=== PATIENT | female | born 1970 | race Caucasian/White ===

== ENCOUNTER → 2016-08-22 | Outpatient (CLI) | payer BC ==
[~2016-08-22] MED LIST: CLAR-19 PO; ESTR0.9T PO
--- NOTE | 2016-08-22 18:00 | Diagnostic Imaging Report ---
Bilateral screening mammogram The current study was also evaluated with a Computer Aided Detection (CAD) system. INDICATION: Screening. No current complaints stated on the questionnaire. COMPARISON: 12/18/13. FINDINGS: The breasts are composed of scattered fibroglandular densities. There are scattered benign-appearing calcifications. Allowing for technique and positional differences, no suspicious change is seen. IMPRESSION: No significant change. ACR BI-RADS Category 2: Benign findings. Result letter will be mailed to the patient. Note: At least 10% of breast cancer is not imaged by mammography. Dictated by: Dictated on workstation # [id number]
== END ==
LOC: RAD 07:34
PROVIDERS: ATTEND Nurse Practitioner
DX: Z12.31 Encounter for screening mammogram for malignant neoplasm of breast (principal)
CPT/HCPCS: 77067

== ENCOUNTER 2017-12-17 12:26 | Emergency (ER) | payer BC ==
[~2017-12-17] VITALS: Ht 167.6 cm; Wt 88.5 kg
--- OUTSIDE RECORDS SUMMARY | 2017-12-17 12:40 | XMS REPORT | Continuity of Care Document ---
Author Author [facility] Organization [facility] Address Unknown Phone Unavailable Allergies Active Description Code Type Severity Reaction Onset Reported/Identified Relationship to Patient Clinical Status Yes levofloxacin [id number] Drug Allergy Unknown N/A 05/21/2011 Medications There is no data. Problems Date Dx Coded Attending Type Code Diagnosis Diagnosed By 05/24/2011 Ot 009.1 ENTERITIS OF INFECT ORIG 05/24/2011 Ot 285.9 ANEMIA NOS 05/24/2011 Ot 305.1 TOBACCO USE DISORDER 05/24/2011 Ot 490 BRONCHITIS NOS 05/24/2011 Ot 530.11 REFLUX ESOPHAGITIS 05/24/2011 Ot 530.81 ESOPHAGEAL REFLUX 05/24/2011 Ot 535.40 OTH SPECIFIED GASTRITIS,W/O MENTION OF H 05/24/2011 Ot 578.1 BLOOD IN STOOL 05/24/2011 Ot V12.61 PERSONAL HISTORY, PNEUMONIA (RECURRENT) 01/13/2016 Ot 793.82 INCONCLUSIVE MAMMOGRAM 01/13/2016 Ot V76.12 OTH SCREEN MAMMO-MALIGN NEOPLASM OF DAVID 01/13/2016 Ot 793.80 UNSPEC ABNORMAL MAMMOGRAM 01/13/2016 BAKARI COSME Ot V76.12 OTH SCREEN MAMMO-MALIGN NEOPLASM OF DAVID 01/13/2016 BAKARI COSME Ot V76.12 OTH SCREEN MAMMO-MALIGN NEOPLASM OF DAVID 08/28/2016 BAKARI COSME Ot Z12.31 ENCNTR SCREEN MAMMOGRAM FOR MALIGNANT NE 2016 BAKARI COSME Ot Z12.31 ENCNTR SCREEN MAMMOGRAM FOR MALIGNANT NE Procedures Code Description Performed By Performed On 45.16 05/23/2011 45.25 05/23/2011 Results There is no data. Encounters ACCT No. Visit Date/Time Discharge Status Pt. Type Provider Facility Loc./Unit Complaint [id number] 08/22/2016 07:34:00 08/22/2016 23:59:59 CLS Outpatient BAKARI COSME [facility] RAD Z12.31 SCREENING [id number] 12/18/2013 08:59:00 12/18/2013 23:59:59 CLS Outpatient BAKARI COSME [facility] RAD SCREENING [id number] 08/29/2012 08:23:00 08/29/2012 23:59:59 CLS Outpatient BAKARI COSME [facility] RAD SCREENING [id number] 05/21/2011 10:46:00 Document Registration [id number] 02/16/2011 08:34:00 Document Registration [id number] 01/27/2011 08:43:00 Document Registration
[2017-12-17 15:21] LABS: BASOPHILS % (AUTO) 0 % (0-10); EOSINOPHILS # (AUTO) 0.1 10^3/uL (0.0-0.3); EOSINOPHILS % (AUTO) 2 % (0-10); HEMATOCRIT 37 % (35-52); HEMOGLOBIN 12.8 G/DL (11.5-16.0); LYMPHOCYTES # (AUTO) 0.9 X 10^3 (1.0-4.0); LYMPHOCYTES % (AUTO) 13 % (12-44); MEAN CORPUSCULAR HEMOGLOBIN 33 PG (25-34); MEAN CORPUSCULAR HGB CONC 35 G/DL (32-36); MEAN CORPUSCULAR VOLUME 95 FL (80-99); MONOCYTES # (AUTO) 0.6 X 10^3 (0.0-1.0); MONOCYTES % (AUTO) 8 % (0-12); NEUTROPHILS # (AUTO) 5.4 X 10^3 (1.8-7.8); NEUTROPHILS % (AUTO) 77 % (42-75); PLATELET COUNT 233 10^3/uL (130-400); RED CELL DISTRIBUTION WIDTH 12.7 % (10.0-14.5)
[2017-12-17 15:33] LABS: PROTHROMBIN TIME PATIENT 12.8 SEC (12.2-14.7)
[2017-12-17 15:42] LABS: ALANINE AMINOTRANSFERASE 18 U/L (0-55); ALBUMIN 4.7 GM/DL (3.2-4.5); ALKALINE PHOSPHATASE 69 U/L (40-136); BILIRUBIN,TOTAL 0.5 MG/DL (0.1-1.0); BUN/CREATININE RATIO 14; CALCIUM 9.5 MG/DL (8.5-10.1); CARBON DIOXIDE 21 MMOL/L (21-32); CHLORIDE 107 MMOL/L (98-107); CREATININE SERUM 0.73 MG/DL (0.60-1.30); GFR ESTIMATED > 60; GLUCOSE 88 MG/DL (70-105); POTASSIUM 3.9 MMOL/L (3.6-5.0); SODIUM 139 MMOL/L (135-145); TOTAL PROTEIN 7.7 GM/DL (6.4-8.2)
--- NOTE | 2017-12-17 16:22 | Diagnostic Imaging Report ---
EXAMINATION: Right knee at 4:13 p.m. INDICATION: Injury, knee pain. Three views were obtained. There are no prior studies available for comparison. FINDINGS: There is no fracture, dislocation, or acute bony abnormality evident. The knee joint is fairly well maintained. The soft tissues are unremarkable. IMPRESSION: 1. There is no evidence for an acute bony abnormality. 2. If there is clinical concern regarding internal derangement, then MRI would be recommended for additional evaluation. Dictated by: Dictated on workstation # [id number]
--- NOTE | 2017-12-17 17:39 | ED Lower Extremity ---
General Chief Complaint: Lower Extremity Stated Complaint: R LEG INJ/INFECTION Nursing Triage Note: PT PRESENTS TO ER WITH COMPLAINT OF RIGHT LEG PAIN. STATES SHE SAW JUANY ON MONDAY FOR AN INJURY. STARTED ON KEFLEX. PT STATES SHE WAS INSTRUCTED BY JUANY TO COME TO THE ER IF HER LEG DID NOT IMPROVE. Nursing Sepsis Screen: No Definite Risk Source: patient Exam Limitations: no limitations History of Present Illness Date Seen by Provider: Dec 17, 2017 Time Seen by Provider: 14:26 Initial Comments Patient is a 47 year old female who presents to the ER with complaints of right leg/knee pain. She reports that on December 02 she fell off of a boat hitting her right knee on the side as she went over the edge causing significant bruising to the right leg and an abrasion to the medial side of the right knee. She reports that one week ago the area of the abrasion became reddened and hot to the touch, at this time she went to see Dr. Dixon at the [facility] and she did an X-Ray and put her on keflex for infection. She is still currently on keflex but does not think she is getting better and was instructed to come to the ER if not improving over the weekend. Onset: last week Pain/Injury Location: right leg, right knee Method of Injury: fell Allergies and Home Medications Allergies Coded Allergies: Levofloxacin (Unverified Allergy, 05/21/11) Home Medications Clindamycin HCl 300 Mg Capsule, 300 MG PO Q6H, (Reported) Estradiol 1 Mg Tablet, 1 MG PO HS, (Reported) Penicillin V Potassium 500 Mg Tablet, 500 MG PO Q6H, (Reported) Patient Home Medication List Home Medication List Reviewed: Yes Review of Systems Constitutional: see HPI; No chills, No fever Musculoskeletal: see HPI, joint pain (right knee pain ) Skin: see HPI, other (brusing to right leg) Past Gaudxwi-Fhxdmc-Xyztmf Hx Past Med/Social Hx: Reviewed Nursing Past Med/Soc Hx Patient Social History Alcohol Use: Denies Use Recreational Drug Use: No Recent Foreign Travel: No Contact w/Someone Who Travel: No Recent Infectious Disease Expo: No Recent Hopitalizations: Yes Immunizations Up To Date Tetanus Booster (TDap): Unknown PED Vaccines UTD: Yes Past Medical History Surgeries: Yes (hysterectomy, tonsillectomy) Hysterectomy, Orthopedic, Tonsillectomy Respiratory: No Cardiac: No Neurological: No Reproductive Disorders: Yes Gastrointestinal: No Musculoskeletal: No Endocrine: No Psychosocial: No Integumentary: No Blood Disorders: No Family Medical History Reviewed Nursing Family Hx Physical Exam Vital Signs Vital Signs - First Documented 12/17/17 14:26 Temp 99.2 Pulse 89 Resp 18 B/P (MAP) 130/89 (103) Pulse Ox 100 O2 Delivery Room Air Capillary Refill : Less Than 3 Seconds Height, Weight, BMI Height: 5'6.00" Weight: 195lbs. oz. 88.680083im; BMI Method:Stated General Appearance: WD/WN, no apparent distress Neck: non-tender, full range of motion, supple, normal inspection Cardiovascular: normal peripheral pulses, regular rate, rhythm, no edema, no gallop, no JVD, no murmur Respiratory: chest non-tender, lungs clear, normal breath sounds, no respiratory distress, no accessory muscle use Hips: bilateral hip non-tender, bilateral hip normal inspection Legs: right leg abrasions (to the right knee medial side.), right leg ecchymosis (extensive ecchymosis to the right leg extending from the right knee to the right ankle. multiple stages of healing of the ecchymosis colors of yellowed to deep purple) Neurologic/Tendon: normal sensation, normal motor functions, normal tendon functions, responds to pain, other (normal capillary refill) Neurologic/Psychiatric: alert, normal mood/affect, oriented x 3 Skin: warm/dry, ecchymosis (as noted above) Progress/Results/Core Measures Results/Orders Lab Results Laboratory Tests Test 12/17/17 15:03 Range/Units White Blood Count 7.0 4.3-11.0 10^3/uL Red Blood Count 3.90 L 4.35-5.85 10^6/uL Hemoglobin 12.8 11.5-16.0 G/DL Hematocrit 37 35-52 % Mean Corpuscular Volume 95 80-99 FL Mean Corpuscular Hemoglobin 33 25-34 PG Mean Corpuscular Hemoglobin Concent 35 32-36 G/DL Red Cell Distribution Width 12.7 10.0-14.5 % Platelet Count 233 130-400 10^3/uL Mean Platelet Volume 10.0 7.4-10.4 FL Neutrophils (%) (Auto) 77 H 42-75 % Lymphocytes (%) (Auto) 13 12-44 % Monocytes (%) (Auto) 8 0-12 % Eosinophils (%) (Auto) 2 0-10 % Basophils (%) (Auto) 0 0-10 % Neutrophils # (Auto) 5.4 1.8-7.8 X 10^3 Lymphocytes # (Auto) 0.9 L 1.0-4.0 X 10^3 Monocytes # (Auto) 0.6 0.0-1.0 X 10^3 Eosinophils # (Auto) 0.1 0.0-0.3 10^3/uL Basophils # (Auto) 0.0 0.0-0.1 10^3/uL Prothrombin Time 12.8 12.2-14.7 SEC INR Comment 1.0 0.8-1.4 Activated Partial Thromboplast Time 31 24-35 SEC Sodium Level 139 135-145 MMOL/L Potassium Level 3.9 3.6-5.0 MMOL/L Chloride Level 107 98-107 MMOL/L Carbon Dioxide Level 21 21-32 MMOL/L Anion Gap 11 5-14 MMOL/L Blood Urea Nitrogen 10 7-18 MG/DL Creatinine 0.73 0.60-1.30 MG/DL Estimat Glomerular Filtration Rate > 60 BUN/Creatinine Ratio 14 Glucose Level 88 70-105 MG/DL Lactic Acid Level 0.90 0.50-2.00 MMOL/L Calcium Level 9.5 8.5-10.1 MG/DL Corrected Calcium 8.5-10.1 MG/DL Total Bilirubin 0.5 0.1-1.0 MG/DL Aspartate Amino Transf (AST/SGOT) 22 5-34 U/L Alanine Aminotransferase (ALT/SGPT) 18 0-55 U/L Alkaline Phosphatase 69 40-136 U/L C-Reactive Protein High Sensitivity 1.35 H 0.00-0.50 MG/DL Total Protein 7.7 6.4-8.2 GM/DL Albumin 4.7 H 3.2-4.5 GM/DL Micro Results Microbiology 12/17/17 Blood Culture - Preliminary, Resulted Gram Positive Isrrael See Comments My Orders Orders - RAJ SALCIDO Cbc With Automated Diff (12/17/17 14:34) Comprehensive Metabolic Panel (12/17/17 14:34) Blood Culture (12/17/17 14:34) Protime With Inr (12/17/17 14:34) Partial Thromboplastin Time (12/17/17 14:34) Saline Lock/Iv-Start (12/17/17 14:34) Vital Signs Adult Sepsis Patie Q15M (12/17/17 14:34) Lactic Acid Analyzer (12/17/17 14:34) Hs C Reactive Protein (12/17/17 14:36) Knee, Right, 3 Views (12/17/17 14:55) Us Venous Lower Ext Rt (12/17/17 14:55) Vital Signs/I&O 12/17/17 12/17/17 14:26 18:00 Temp 99.2 99.2 Pulse 89 89 Resp 18 18 B/P (MAP) 130/89 (103) 130/89 (103) Pulse Ox 100 100 O2 Delivery Room Air Blood Pressure Mean: 103 Progress Progress Note : Time: 17:00 Progress Note I have seen and evaluated the patient. I have informed her of US findings of no evidence of fluid collection to suspect an abscess or DVT and no fracture seen on X-RAY. I have informed her of laboratory findings and that the cultures would be reported out at a later date and Dr. Dixon would receive these results should her antibiotic need to be changed. I did review the case with Dr. Dixon at this time and she agrees with plans to discharge home given normal lab findings and normal imaging studies. The patient agrees with plan of care, return precautions were given. Diagnostic Imaging Diagonstic Imaging: Xray, Ultrasound Plain Films/CT/US/NM/MRI: leg, knee Comments NAME: MIMI CARSON [facility] REC#: [id number] PHYSICIAN: RAJ SALCIDO CC: ADRIANA SALCIDO MICHAEL S DO Page 2 of 2 RADIOLOGY REPORT [facility] [place], [place] CC: ADRIANA SALCIDO MICHAEL S DO Page 1 of 1 RADIOLOGY REPORT NAME: MIMI CARSON [facility] REC#: [id number] PT STATUS: DEP ER : 1970 PHYSICIAN: RAJ SALCIDO ADMIT DATE: 12/17/17/ER Signed Date of Exam: 09/16/18 US VENOUS LOWER EXT RT PROCEDURE: US right lower extremity venous. TECHNIQUE: Multiple real-time grayscale images were obtained over the right lower extremity in various projections. Additional duplex Doppler and color Doppler images were also obtained. INDICATION: Right lower extremity pain and swelling. Recent injury. COMPARISON: None available. FINDINGS: The visualized deep venous structures of the right lower extremity and left common femoral vein demonstrate normal compression, flow, and augmentation. There is an ill-defined area of hypoechogenicity in the area of interest in the anteromedial right lower leg. There is no discrete/drainable focal collection. IMPRESSION: 1. No evidence of DVT. 2. Ill-defined hypoechogenicity in the region of interest in the anteromedial lower leg. Findings are felt to represent focal edema, or possibly hematoma if there is been trauma to this area. No discrete/drainable collection is identified. Dictated by: Dictated on workstation # [id number] Dict: 12/17/17 1614 Trans: 12/17/171743 Interpreted by: USMAN WALTERS DO Electronically signed by: USMAN WALTERS DO 12/17/171743 NAME: MIMI CARSON [facility] REC#: [id number] PHYSICIAN: RAJ SALCIDO CC: ADRIANA SALCIDO PAUL J MD Page 1 of 1 RADIOLOGY REPORT V[facility] [place] CC: ADRIANA SALCIDO PAUL J MD Page 1 of 1 RADIOLOGY REPORT NAME: MIMI [facility]SON [facility] REC#: [id number] PT STATUS: REG ER : 1970 PHYSICIAN: RAJ SALCIDO ADMIT DATE: 12/17/17/ER Signed Date of Exam: 12/17/17 KNEE, RIGHT, 3 VIEWS EXAMINATION: Right knee at 4:13 p.m. INDICATION: Injury, knee pain. Three views were obtained. There are no prior studies available for comparison. FINDINGS: There is no fracture, dislocation, or acute bony abnormality evident. The knee joint is fairly well maintained. The soft tissues are unremarkable. IMPRESSION: 1. There is no evidence for an acute bony abnormality. 2. If there is clinical concern regarding internal derangement, then MRI would be recommended for additional evaluation. Dictated by: Dictated on workstation # [id number] Dict: 12/17/17 1616 Trans: 12/17/17 1648 Interpreted by: VITALIY LOPEZ MD Electronically signed by: VITALIY LOPEZ MD 12/17/17 1648 Departure Impression Primary Impression: Hematoma Additional Impression: Cellulitis Disposition: 01 HOME, SELF-CARE Condition: Stable/Unchanged Departure-Patient Inst. Decision time for Depature: 17:35 Referrals: MI EVERETT MD (PCP/Family) Primary Care Physician Patient Instructions: Contusion (DC), HEMATOMA Add. Discharge Instructions: Continue the Keflex as previously prescribed. Follow up with Dr. Dixon within 1 week for recheck. You may take ibuprofen and Tylenol as directed by the bottle. Alternate ice and heat to the sore areas. Return back to the emergency room for any worsening symptoms or concerns as needed. All discharge instructions reviewed with patient and/or family. Voiced understanding. RAJ SALCIDO Dec 17, 2017 17:39
[2017-12-17 18:00] VITALS: BP 130/89
--- NOTE | 2017-12-18 13:06 | Diagnostic Imaging Report ---
PROCEDURE: US right lower extremity venous. TECHNIQUE: Multiple real-time grayscale images were obtained over the right lower extremity in various projections. Additional duplex Doppler and color Doppler images were also obtained. INDICATION: Right lower extremity pain and swelling. Recent injury. COMPARISON: None available. FINDINGS: The visualized deep venous structures of the right lower extremity and left common femoral vein demonstrate normal compression, flow, and augmentation. There is an ill-defined area of hypoechogenicity in the area of interest in the anteromedial right lower leg. There is no discrete/drainable focal collection. IMPRESSION: 1. No evidence of DVT. 2. Ill-defined hypoechogenicity in the region of interest in the anteromedial lower leg. Findings are felt to represent focal edema, or possibly hematoma if there is been trauma to this area. No discrete/drainable collection is identified. Dictated by: Dictated on workstation # [id number]
[2017-12-18] MEDS ORDERED: ESTR1TAB24 PO (15:48)
[2017-12-18] MEDS ORDERED: PENI500T PO (15:52)
[2017-12-18] MEDS ORDERED: CLIN300C11 PO (15:52)
[2017-12-19] MEDS ORDERED: HYDR-3820 PO (10:46)
== END 2017-12-17 18:03 | disposition home or self-care (01) ==
LOC: EDUNIT# 12:26 → ER 12:29
DX: S80.01XA Contusion of right knee, initial encounter (principal); S90.01XA Contusion of right ankle, initial encounter; L03.115 Cellulitis of right lower limb; M79.604 Pain in right leg; Z88.8 Allergy status to other drugs, medicaments and biological substances; Z90.710 Acquired absence of both cervix and uterus; Z90.89 Acquired absence of other organs
CPT/HCPCS: 36415; 73562; 80053; 83605; 85025; 85610; 85730; 86141; 87040; 87077

== ENCOUNTER 2017-12-18 15:26 | Outpatient (CLI) | payer BC ==
[~2017-12-18] VITALS: Ht 167.6 cm; Wt 88.5 kg
[~2017-12-18 15:26] MED LIST changes: -CLIN300C11 PO; -ESTR1TAB24 PO; -HYDR-3820 PO; -PENI500T PO
[2017-12-18] MEDS ORDERED: ESTR1TAB24 PO (15:48)
[2017-12-18] MEDS ORDERED: PENI500T PO (15:52)
[2017-12-18] MEDS ORDERED: CLIN300C11 PO (15:52)
[2017-12-19] MEDS ORDERED: HYDR-3820 PO (10:46)
== END 2017-12-18 15:57 | disposition home or self-care (01) ==
LOC: PREOP 15:26
PROVIDERS: ATTEND Surgery
DX: Z01.818 Encounter for other preprocedural examination (principal)

== ENCOUNTER → 2017-12-18 | Outpatient (CLI) | payer BC ==
[~2017-12-18] MED LIST changes: +CLIN300C11 PO; +ESTR1TAB24 PO; +HYDR-3820 PO; +PENI500T PO
--- NOTE | 2017-12-18 11:55 | Diagnostic Imaging Report ---
PROCEDURE: CT right lower extremity without contrast. TECHNIQUE: Axially acquired CT was obtained through the right lower extremity without intravenous contrast. Coronal and sagittal reformations were also performed. INDICATION: Hematoma and cellulitis of the right lower extremity. FINDINGS: The bony structures are intact. No fracture or bony destructive changes are seen. No knee joint effusion is identified. No soft tissue gas is detected. There is moderate infiltration of the subcutaneous fat of the right lower extremity on the medial side at the level of the knee joint and extending inferior to the knee joint approximately 7 cm. Mixed density is present. The greatest area of density measures approximately 2 cm. These areas of increased density could represent hemorrhage or infection. No well-formed hematoma or abscess is seen at this time. The deep soft tissues are unremarkable. IMPRESSION: Infiltration of the subcutaneous fat of the right lower extremity medial side commencing just above the jointline of the knee and extending distally. Mixed density in the subcutaneous tissues is seen which could represent infection or blood. No well-formed hematoma or abscess is seen at this time. No soft tissue gas is present. Dictated by: Dictated on workstation # [id number]
== END ==
LOC: RAD 10:34
PROVIDERS: ATTEND Internal Medicine
DX: S80.12XA Contusion of left lower leg, initial encounter (principal); L98.6 Other infiltrative disorders of the skin and subcutaneous tissue; L03.90 Cellulitis, unspecified; B96.89 Other specified bacterial agents as the cause of diseases classified elsewhere; R78.81 Bacteremia
CPT/HCPCS: 73700

== ENCOUNTER 2017-12-19 07:58 | Day surgery (SDC) | payer BC ==
[~2017-12-19] VITALS: Ht 167.6 cm; Wt 88.5 kg
[~2017-12-19 07:58] MED LIST changes: +CLIN300C11 PO; +ESTR1TAB24 PO; +PENI500T PO
[2017-12-19 08:10] VITALS: BP 126/99
[2017-12-19] MEDS ORDERED: CLINDAMYCIN 600 MG/50 ML IVPB 50 ML IV ONE ×2 (08:30)
[2017-12-19] MEDS: LACTATED RINGERS 1,000 ML IV PRN ×2 (08:45→10:45)
[2017-12-19] MEDS ORDERED: MIDAZOLAM 2 MG/2 ML (VERSED) VIAL IV ONE (09:00)
[2017-12-19] MEDS ORDERED: fentaNYL INJECTION 100 MCG/2 ML AMP ONE (09:03)
[2017-12-19] MEDS ORDERED: ONDANSETRON 4 MG/2 ML (SDV) Z0FRAN ONE (09:03)
[2017-12-19] MEDS ORDERED: DEXAMETHASONE 10 MG/ML (DECADRON) 1 ML VIAL ONE (09:03)
[2017-12-19] MEDS ORDERED: proPOfol 200 MG/20 ML (DIPRIVAN) VIAL IV ONE (09:03)
[2017-12-19] MEDS ORDERED: LIDOCAINE PF 2% 2 ML (XYLOCAINE) VIAL ONE (09:03)
[2017-12-19] MEDS ORDERED: MIDAZOLAM 2 MG/2 ML (VERSED) VIAL ONE ×2 (09:04)
--- NOTE | 2017-12-19 09:57 | Progress Note-Pre Operative ---
Pre-Operative Progress Note H&P Reviewed The H&P was reviewed, patient examined and no changes noted. Time Seen by Provider: 09:48 Date H&P Reviewed: Dec 19, 2017 Time H&P Reviewed: 09:50 Pre-Operative Diagnosis: RLE cellulitis/abscess r/o necrotic tissue, Blood Clx + C. PerfringLISA Aragon DO Dec 19, 2017 09:57
[2017-12-19] MEDS ORDERED: SEVOFLURANE (ULTANE) 15 ML INHAL SOLN ONE (10:35)
[2017-12-19] MEDS ORDERED: LACTATED RINGERS 1,000 ML IV ONE (10:46)
[2017-12-19] MEDS ORDERED: HYDR-3820 PO (10:46)
--- NOTE | 2017-12-19 10:46 | Progress Note-Post Operative ---
Post-Operative Progess Note Surgeon (s)/Nurse Discharge Planner (s) Surgeon LISA GATES DO Nurse Discharge Planner: DONTRELL Paredes Pre-Operative Diagnosis RLE cellulitis/abscess r/o necrotic tissue, Blood Clx + C. Perfringens Post-Operative Diagnosis Necrotic tissue Procedure & Operative Findings Date of Procedure 12/19/17 Procedure Performed/Findings I&D with debridement and packing, Debrided 12.5 x 6 x 3.2cm Anesthesia Type LMA Estimated Blood Loss Estimated blood loss (mL): less than 20ml Specimens/Packing Specimens Removed necrotic tissue LISA GATES DO Dec 19, 2017 10:46
--- NOTE | 2017-12-19 10:48 | Discharge Inst-Surgical ---
Discharge Inst-Surgical Depart Medication/Instructions New, Converted or Re-Newed RX: RX Given to Pt/Family Patient Instructions Follow up Appt: Make appointment for 1 week. Instructions: No strenuous activity. May shower in 24 hours, no tub bath or soaking. Use incentive spirometer at home as directed. No Smoking Skin/Wound Care: Leave bandages in place until you see me in clinic 12/20. Symptoms to Report: Appetite Changes, Extremity Discoloration, Numbness/Tingling, Swelling Increased , Bleeding Excessive, Eyesight Changes, Pain Increased, Urine Color Change, Constipation(Persistent), Fever over 101 degree F, Pain/Pressure in chest, Urinating Difficulty, Cough Up/Vomit Blood, Heart Beat Irreg/Pounding, Pain/ Pressure in jaw, Vaginal Bleeding Increase, Cramps in feet or legs, Lightheadedness, Pain/Pressure in shoulder, Diarrhea(Persistent), Memory Changes Suddenly, Questions/Concerns, Weight gain consecutive days, Dizziness/ Fainting, Nausea/Vomiting, Shortness of Breath, Weight gain over 2 pounds If questions or concerns contact your physician Or seek help at emergency department. Activity Activity as Tolerated: Yes Driving Instructions: No Driving/Refer to Dr. Early Discharge Diet: No Restrictions Diet After 24 Hours: Clear Liquid if Nauseous If Any Problems/Questions/Issu: Contact Your Physician, Go to Emergency Room Skin/Wound Care Infection Signs and Symptoms: Increased Redness, Foul Odor of Wound, Increased Drainage, Skin Itchy or Has a Rash, Increased Swelling, Temperature Above 101 F Bathing Instructions: LISA Augustin DO Dec 19, 2017 10:48
[2017-12-19] MEDS ORDERED: morphine INJ 10 MG/ML 1ML (SYR OR VIAL) IVP ONE (11:00)
[2017-12-19] MEDS ORDERED: ONDANSETRON 4 MG/2 ML (SDV) Z0FRAN IVP PRN (11:00)
[2017-12-19] MEDS ORDERED: MEPERIDINE (DEMEROL) INJ 50 MG/ML IVP ONE (11:00)
[2017-12-19 11:40] VITALS: BP 125/80
[2017-12-19] MEDS ORDERED: HYDROcodone/APAP 10 MG/325 MG (LORTAB) TAB PO PRN (12:00)
[2017-12-19 12:10] VITALS: BP 119/94
--- NOTE | 2017-12-19 12:12 | Anesthesia-General Post-Op ---
General Patient Condition Mental Status/LOC: Same as Preop Cardiovascular: Satisfactory Nausea/Vomiting: Absent Respiratory: Satisfactory Pain: Controlled Complications: Absent Post Op Complications Complications None Follow Up Care/Instructions Patient Instructions None needed. Anesthesia/Patient Condition Patient Condition Patient is doing well, no complaints, stable vital signs, no apparent adverse anesthesia problems. No complications reported per nursing. D/C home per [facility] [place] Criteria: Yes SHON CHATMAN CRNA Dec 19, 2017 12:12
[2017-12-19 13:00] VITALS: BP 111/78
[2017-12-19 13:23] VITALS: BP 111/78
--- NOTE | 2017-12-19 21:44 | OPERATIVE REPORT ---
DATE OF SERVICE: 12/19/2017 PREOPERATIVE DIAGNOSIS: Right lower extremity cellulitis, possible abscess, rule out necrotic tissue. POSTOPERATIVE DIAGNOSIS: Necrotic tissue, unsure whether this is necrotizing fasciitis or pressure necrosis. SURGEON: Ag Laguna DO SOLE LEVELER MACHINE: Matthew Salinas, MS3 PROCEDURE: Incision and drainage with sharp debridement and packing, debridement area was 12.5 x 6 x 3.2 cm. SPECIMEN: Necrotic tissue sent for pathology and cultures. BLOOD LOSS: Less than 20 mL. FLUIDS: Per anesthesia. POSTOPERATIVE CONDITION: Stable. INDICATION FOR PROCEDURE: The patient is a 47-year-old female who hurt her leg about 2 weeks ago, banged it on the engine of a boat, got a little bit better, but then started getting worse, started on antibiotics, still not improving, leg pain was worsening. Blood culture done, which showed bacteremia with Clostridium perfringens. I was worried that there could be some necrotizing fasciitis. This definitely needed to be opened. FINDINGS: The patient had necrotic tissue. It looked like fat and muscle. This was all the way down to the tibia. The debridement area measured 12.5 x 6 x 3.2 cm. PROCEDURE NOTE: After informed consent was obtained, the patient was brought to the operating room, placed on the table in supine position. She was sterilely prepped and draped in normal fashion. An incision was then made in a slightly medial to lateral direction going, lateral was inferiorly and medial was superiorly. Made the incision with #15 blade, carried down through the skin into subcutaneous tissue. Immediately got out some yellowish clear fluid and then a lot of old blood clot, started dissecting down. This blood clot was taken out and necrotic tissue actually went all the way down to the tibia, I could feel the bone and then actually could see it. I started inspecting the tissue around this area and all the fat was morel and black. It was . Started doing sharp debridement of all the necrotic tissue with scissors, the #15 blade and the bovie electrocautery. I had to extend the incision superiorly as well as inferiorly. Incision measured about 12.5 cm. Sent pieces of necrotic tissue for pathology as well as for cultures. Cut out all the tissue until we got bleeding and live tissue. Area measured 12.5 cm long x about 6 cm wide x about 3.2 cm deep, again right down onto the tibia. Used a pulse independent marketing consultant with 3 liters of saline to wash this out. Hemostasis was obtained with Bovie electrocautery, reinspected to make sure I did not see any other necrotic tissue and then at this time packed with one inch iodoform packing, placed a whole bottle of packing in there. Area was then cleaned and dried and then placed a large ABD dressing and then wrapped it with a Kerlix dressing. The patient was then transferred to recovery room in stable condition. Sponge, instrument and needle count correct at the end of the case. Job ID: [id number] DocumentID: [id number] Dictated Date: 12/19/2017 11:49:07 Photocopying Machine Operator Date: 12/19/2017 19:33:20 Dictated By: DO CALISTA LI
== END 2017-12-19 13:23 | disposition home or self-care (01) ==
LOC: SDC 07:58
PROVIDERS: ATTEND Surgery
DX: L03.115 Cellulitis of right lower limb (principal); M79.89 Other specified soft tissue disorders; F17.210 Nicotine dependence, cigarettes, uncomplicated; E66.9 Obesity, unspecified; Z68.31 Body mass index [BMI] 31.0-31.9, adult
CPT/HCPCS: 87070; 87075; 87081; 87101; 87116; 87205

== ENCOUNTER → 2017-12-27 | Outpatient (CLI) | payer BC ==
[~2017-12-27] MED LIST changes: +HYDR-3820 PO
== END ==
LOC: WOUNDCARE 12:16
PROVIDERS: ATTEND Surgery
DX: L97.212 Non-pressure chronic ulcer of right calf with fat layer exposed (principal); S81.801D Unspecified open wound, right lower leg, subsequent encounter; B96.7 Clostridium perfringens [C. perfringens] as the cause of diseases classified elsewhere
CPT/HCPCS: 11042; 11045; 97605

== ENCOUNTER → 2017-12-29 | Outpatient (CLI) | payer BC | LOC: WOUNDCARE 10:25 | PROVIDERS: ATTEND Surgery | DX: L97.212 Non-pressure chronic ulcer of right calf with fat layer exposed (principal); S81.801D Unspecified open wound, right lower leg, subsequent encounter; B96.7 Clostridium perfringens [C. perfringens] as the cause of diseases classified elsewhere | CPT/HCPCS: 97605 ==

== ENCOUNTER → 2018-01-01 | Outpatient (CLI) | payer BC | LOC: WOUNDCARE 10:28 | PROVIDERS: ATTEND Surgery | DX: L97.212 Non-pressure chronic ulcer of right calf with fat layer exposed (principal); S81.801D Unspecified open wound, right lower leg, subsequent encounter; B96.7 Clostridium perfringens [C. perfringens] as the cause of diseases classified elsewhere | CPT/HCPCS: 97605 ==

== ENCOUNTER → 2018-01-03 | Outpatient (CLI) | payer BC | LOC: WOUNDCARE 10:27 | PROVIDERS: ATTEND Surgery | DX: L97.212 Non-pressure chronic ulcer of right calf with fat layer exposed (principal); B96.7 Clostridium perfringens [C. perfringens] as the cause of diseases classified elsewhere; S81.801D Unspecified open wound, right lower leg, subsequent encounter | CPT/HCPCS: 11042; 97605 ==

== ENCOUNTER → 2018-01-05 | Outpatient (CLI) | payer BC | LOC: WOUNDCARE 10:28 | PROVIDERS: ATTEND Nurse Practitioner | DX: L97.212 Non-pressure chronic ulcer of right calf with fat layer exposed (principal); B96.7 Clostridium perfringens [C. perfringens] as the cause of diseases classified elsewhere; S81.801D Unspecified open wound, right lower leg, subsequent encounter | CPT/HCPCS: 97605 ==

== ENCOUNTER → 2018-01-08 | Outpatient (CLI) | payer BC | LOC: WOUNDCARE 12:54 | PROVIDERS: ATTEND Surgery | DX: L97.212 Non-pressure chronic ulcer of right calf with fat layer exposed (principal); S81.801D Unspecified open wound, right lower leg, subsequent encounter; B96.7 Clostridium perfringens [C. perfringens] as the cause of diseases classified elsewhere | CPT/HCPCS: 97605 ==

== ENCOUNTER → 2018-01-10 | Outpatient (CLI) | payer BC | LOC: WOUNDCARE 10:28 | PROVIDERS: ATTEND Surgery | DX: L97.212 Non-pressure chronic ulcer of right calf with fat layer exposed (principal); S81.801D Unspecified open wound, right lower leg, subsequent encounter; B96.7 Clostridium perfringens [C. perfringens] as the cause of diseases classified elsewhere | CPT/HCPCS: 11042; 87070; 87075; 87077; 87186; 87205; 97605 ==

== ENCOUNTER → 2018-01-12 | Outpatient (CLI) | payer BC | LOC: WOUNDCARE 08:10 | PROVIDERS: ATTEND Surgery | DX: L97.212 Non-pressure chronic ulcer of right calf with fat layer exposed (principal); S81.801A Unspecified open wound, right lower leg, initial encounter; B96.7 Clostridium perfringens [C. perfringens] as the cause of diseases classified elsewhere | CPT/HCPCS: 97605 ==

== ENCOUNTER → 2018-01-15 | Outpatient (CLI) | payer BC | LOC: WOUNDCARE 10:56 | PROVIDERS: ATTEND Surgery | DX: L97.212 Non-pressure chronic ulcer of right calf with fat layer exposed (principal); S81.801A Unspecified open wound, right lower leg, initial encounter; B96.7 Clostridium perfringens [C. perfringens] as the cause of diseases classified elsewhere | CPT/HCPCS: 97605 ==

== ENCOUNTER → 2018-01-17 | Outpatient (CLI) | payer BC | LOC: WOUNDCARE 09:57 | PROVIDERS: ATTEND Surgery | DX: L97.212 Non-pressure chronic ulcer of right calf with fat layer exposed (principal); S81.801A Unspecified open wound, right lower leg, initial encounter; B96.7 Clostridium perfringens [C. perfringens] as the cause of diseases classified elsewhere | CPT/HCPCS: 11042 ==

== ENCOUNTER → 2018-01-24 | Outpatient (CLI) | payer BC | LOC: WOUNDCARE 10:20 | PROVIDERS: ATTEND Surgery | DX: L97.212 Non-pressure chronic ulcer of right calf with fat layer exposed (principal); S81.801A Unspecified open wound, right lower leg, initial encounter; B96.7 Clostridium perfringens [C. perfringens] as the cause of diseases classified elsewhere | CPT/HCPCS: 11042 ==

== ENCOUNTER → 2018-01-31 | Outpatient (CLI) | payer BC | LOC: WOUNDCARE 10:23 | PROVIDERS: ATTEND Surgery | DX: L97.212 Non-pressure chronic ulcer of right calf with fat layer exposed (principal); S81.801A Unspecified open wound, right lower leg, initial encounter; B96.7 Clostridium perfringens [C. perfringens] as the cause of diseases classified elsewhere | CPT/HCPCS: 11042 ==

== ENCOUNTER → 2018-02-06 | Outpatient (CLI) | payer BC | LOC: WOUNDCARE 14:26 | PROVIDERS: ATTEND Surgery | DX: L92.8 Other granulomatous disorders of the skin and subcutaneous tissue (principal); L97.212 Non-pressure chronic ulcer of right calf with fat layer exposed; S81.801A Unspecified open wound, right lower leg, initial encounter; B96.7 Clostridium perfringens [C. perfringens] as the cause of diseases classified elsewhere | CPT/HCPCS: 17250 ==

== ENCOUNTER → 2018-02-15 | Outpatient (CLI) | payer BC | LOC: WOUNDCARE 10:24 | PROVIDERS: ATTEND Orthopaedic Surgery Hand Surgery | DX: L97.212 Non-pressure chronic ulcer of right calf with fat layer exposed (principal); S81.801A Unspecified open wound, right lower leg, initial encounter; B96.7 Clostridium perfringens [C. perfringens] as the cause of diseases classified elsewhere | CPT/HCPCS: 11042 ==

== ENCOUNTER → 2018-03-01 | Outpatient (CLI) | payer BC | LOC: WOUNDCARE 10:24 | PROVIDERS: ATTEND Orthopaedic Surgery Hand Surgery | DX: S81.801A Unspecified open wound, right lower leg, initial encounter (principal); B96.7 Clostridium perfringens [C. perfringens] as the cause of diseases classified elsewhere | CPT/HCPCS: 99212 ==

== ENCOUNTER → 2018-05-30 | Outpatient (CLI) | payer BC ==
--- NOTE | 2018-05-30 18:06 | Diagnostic Imaging Report ---
Digital mammogram bilateral screening with 3D tomosynthesis. The current study was also evaluated with a Computer Aided Detection (CAD) system. INDICATION: Screening. This study was compared to the prior exams of 08/27/2016 and 12/18/2013. At this time, there are no current complaints. FINDINGS: There are scattered fibroglandular densities in both breasts which could obscure a lesion. When compared to the prior study, there has been no significant change. There is no primary or secondary sign of malignancy noted. The 3D tomographic views also fail to show any sign of malignancy. IMPRESSION: There is no evidence of malignancy. ACR BI-RADS Category 1: Negative. Result letter will be mailed to the patient. Note: At least 10% of breast cancer is not imaged by mammography. Dictated by: Dictated on workstation # [id number]
== END ==
LOC: RAD 07:30
PROVIDERS: ATTEND Nurse Practitioner
DX: Z12.31 Encounter for screening mammogram for malignant neoplasm of breast (principal)
CPT/HCPCS: 77067

== ENCOUNTER → 2019-11-07 | Outpatient (CLI) | payer BC ==
[~2019-11-07] MED LIST changes: +ACHYD1T PO; -HYDR-3820 PO
--- NOTE | 2019-11-08 08:48 | Diagnostic Imaging Report ---
INDICATION: Routine screening. Comparison is made with prior mammogram from 05/30/2018 and 08/22/2016. 2-D and 3-D bilateral screening mammography was performed with CAD. Both breasts remain heterogeneously dense, limiting the sensitivity of mammography. No mass or malignant appearing microcalcifications are seen. The axillae are unremarkable. IMPRESSION: BI-RADS Category 1 No mammographic features suspicious for malignancy are identified. ACR BI-RADS Category 1: Negative. Result letter will be mailed to the patient. Note: At least 10% of breast cancer is not imaged by mammography. Dictated by: Dictated on workstation # [id number]
== END ==
LOC: RAD 15:01
PROVIDERS: ATTEND Nurse Practitioner
DX: Z12.31 Encounter for screening mammogram for malignant neoplasm of breast (principal)
CPT/HCPCS: 77063; 77067

== ENCOUNTER → 2021-08-26 | Outpatient (CLI) | payer BC ==
[~2021-08-26] MED LIST changes: +CLIN-144 PO; -CLIN300C11 PO
--- NOTE | 2021-08-26 15:32 | Diagnostic Imaging Report ---
INDICATION: Routine screening. COMPARISON is made with prior mammograms from 11/07/2019 and 08/22/2016. 2-D and 3-D bilateral screening mammography was performed with CAD. Scattered fibroglandular densities are identified bilaterally. No spiculated mass or malignant-appearing microcalcifications are seen. Axillae are unremarkable. IMPRESSION: BI-RADS Category 1. No mammographic features suspicious for malignancy are identified. ACR BI-RADS Category 1: Negative. Result letter will be mailed to the patient. Note: At least 10% of breast cancer is not imaged by mammography. Dictated by: Dictated on workstation # [id number]
== END ==
LOC: RAD 11:27
PROVIDERS: ATTEND Surgery
DX: Z12.31 Encounter for screening mammogram for malignant neoplasm of breast (principal)
CPT/HCPCS: 77063; 77067

== ENCOUNTER → 2022-11-11 | Outpatient (CLI) | payer BC ==
--- NOTE | 2022-11-11 13:10 | Diagnostic Imaging Report ---
Indication: Routine screening. Comparison is made with prior mammograms of 08/26/2021 and 11/07/2019. 2-D and 3-D bilateral screening mammography was performed with CAD. Scattered fibroglandular densities are identified bilaterally. The parenchymal pattern is stable. No mass or malignant-appearing microcalcifications are seen. Axillae are unremarkable. IMPRESSION: BI-RADS Category 1 No mammographic features suspicious for malignancy are identified. ACR BI-RADS Category 1: Negative. Result letter will be mailed to the patient. Note: At least 10% of breast cancer is not imaged by mammography. Dictated by: Dictated on workstation # [id number]
== END ==
LOC: RAD 08:09
PROVIDERS: ATTEND Nurse Practitioner
DX: Z12.31 Encounter for screening mammogram for malignant neoplasm of breast (principal)
CPT/HCPCS: 77063; 77067